=== PATIENT | male | born 1990 | race Caucasian/White ===

== ENCOUNTER → 2023-04-12 | Emergency (ER) | payer SELFPAY ==
[~2023-04-12] MED LIST: NA CHLORIDE 0.9% 1,000 ML ONE; activated charcoaL 25 GM/120 ML TUBE ONE
[2023-04-12 20:02] LABS: Absolute Lymphocytes (CBC) 0.9 K/uL (0.7-4.9); Hematocrit 41.6 % (39.6-49.0); Lymphocytes % 15.3 % (15.3-44.8); MCV 87.7 fL (80-100); MPV 6.9 fL (7.6-11.3); Platelets 386 thou/uL (152-406); RBC Red Blood Cell Count 4.74 M/uL (4.33-5.43)
[2023-04-12 20:07] LABS: Protime INR 1.13
[2023-04-12 20:19] LABS: ALT/SGPT 23 U/L (16-61); AST/SGOT 17 U/L (15-37); Albumin 4.2 g/dL (3.4-5.0); Alkaline Phosphatase 106 U/L (45-117); BUN Blood Urea Nitrogen 11 mg/dL (7-18); Bicarbonate 29 mEq/L (21-32); Bilirubin Direct 0.2 mg/dL (0-0.2); Bilirubin Indirect, Calculated 0.4 mg/dL (0.2-0.8); Bilirubin Total 0.6 mg/dL (0.2-1.0); Glomerular Filtration Rate 59 ml/min (=/>90); Glucose Level 93 mg/dL (74-106); Potassium 3.2 mEq/L (3.5-5.1); Protein, Total 8.2 g/dL (6.4-8.2); Sodium Level 138 mEq/L (136-145); Troponin High Sensitivity 3.9 pg/mL (<58.9)
--- NOTE | 2023-04-12 20:35 | ER ---
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 I don't know what it was it was a crystal and powder substance. 19:49 Coronavirus screen: At this time, the client does not indicate any symptoms associated jb4 with coronavirus-19. Ebola Screen: No symptoms or risks identified at this time. Initial Sepsis Screen: Does the patient meet any 2 criteria? No. Patient's initial sepsis screen is negative. Does the patient have a suspected source of infection? No. Patient's initial sepsis screen is negative. Risk Assessment: Do you want to hurt yourself or someone else? Patient reports no desire to harm self or others. Onset of symptoms was April 12, 2023. Transition of care: patient was not received from another setting of care. 19:49 Method Of Arrival: Ambulatory jb4 19:49 Acuity: DALLIN 2 jb4 Historical: - Allergies: 19:50 No Known Allergies; jb4 - Home Meds: 19:50 None [Active]; jb4 - PMHx: 19:50 None; jb4 - PSHx: 19:50 None; jb4 - Immunization history:: Adult Immunizations up to date. - Social history:: Smoking status: Patient denies any tobacco usage or history of. Patient/guardian denies using alcohol, street drugs. - Family history:: not pertinent. - Hospitalizations: : No recent hospitalization is reported. Screenin:59 [facility] ED Fall Risk Assessment (Adult) History of falling in the last 3 months, jw7 including since admission No falls in past 3 months (0 pts) Score/Fall Risk Level 0 - 2 = Low Risk Oriented to surroundings, Maintained a safe environment, Educated pt \\T\\ family on fall prevention, incl call for assistance when getting out of bed. Abuse screen: Denies threats or abuse. Denies injuries from another. Nutritional screening: No deficits noted. Tuberculosis screening: No symptoms or risk factors identified. Assessment: 19:40 Reassessment: Pt is more agitated after getting back to the ER room. Pt stormed out of jb4 the ER yelling " I don't have time for this" Tried telling the pt that medications are being prepared, Pt states " I don't care I am leaving." Pt left ER. Found pt in the parking lot, convinced pt to come back in to ER and be evaluated and get treatment. Pt currently cooperating. 20:00 General: Appears in no apparent distress. comfortable, slender, well groomed, Behavior jw7 is cooperative, agitated, anxious, restless. Pain: Denies pain. Neuro: Cho Agitation-Sedation Scale (RASS): +1 Restless Level of Consciousness is awake, alert, obeys commands, Oriented to person, place, time, situation. Cardiovascular: Heart tones S1 S2 present Capillary refill < 3 seconds Clubbing of nail beds is absent JVD is absent Patient's skin is warm and dry. Rhythm is sinus tachycardia. Respiratory: Airway is patent Trachea midline Respiratory effort is even, unlabored, Respiratory pattern is regular, symmetrical. GI: Abdomen is flat, non-distended, Bowel sounds present X 4 quads. : No deficits noted. No signs and/or symptoms were reported regarding the genitourinary system. EENT: No deficits noted. No signs and/or symptoms were reported regarding the EENT system. Derm: Skin is intact, is healthy with good turgor, Skin is dry, Skin is normal, Skin temperature is warm. Musculoskeletal: Circulation, motion, and sensation intact. Range of motion: intact in all extremities. 20:00 General: Pt denies any homicidal or suicidal ideation. jw7 20:10 Reassessment: IV removed per pt's request. Pt continues to leave the ER stating "I just jb4 need some fresh air.", Provider okayed pt to have water. Pt currently back in room pacing. 20:16 Reassessment: Pt left ED again to front lobby stating " I just need some fresh air." Pt jb4 remains A\\T\\Ox4. 20:32 Reassessment: Pt discovered gone at this time. Remained very anxious and agitated upon jb4 leaving the ED. 20:45 Reassessment: Registration called [facility] notifying them pt left and initially drove jb4 himself here. Unknown if he left in vehicle. Vital Signs: 19:49 BP 152 / 87; Pulse 122; Resp 18; Pulse Ox 99% on R/A; Weight 81.65 kg; Height 6 ft. 4 jb4 in. (R); Pain 0/10; 19:49 Body Mass Index 21.91 (81.65 kg, 193.04 cm) jb4 19:49 Pain Scale: Adult jb4 ED Course: 19:32 Patient arrived in ED. jb4 19:39 Betito Llanos MD is Attending Physician. rn 19:50 Triage completed. jb4 19:50 Arm band placed on left wrist. jb4 19:59 Patient has correct armband on for positive identification. Bed in low position. Call thalia light in reach. 19:59 Initial lab(s) drawn, by ED staff, sent to lab. EKG done, by ED staff, reviewed by thalia Llanos MD. Inserted saline lock: 20 gauge in right antecubital area, using aseptic technique. Blood collected. 20:10 IV discontinued, intact, bleeding controlled, No redness/swelling at site. Pressure jb4 dressing applied. 20:31 Attending Physician role handed off by Betito Llanos MD kdr 20:31 Charles Randhawa MD is Attending Physician. kdr Administered Medications: 19:49 Drug: Actidose-Sorbitol PO Suspension 50 grams PO once Route: PO; jb4 19:58 Drug: NS 0.9% IV 1000 ml IV at 1000 ml once Route: IV; Rate: 1000 ml; Site: right jw7 antecubital; Outcome: 20:46 Eloped from patient exam room, after seeing physician Time discovered patient gone: jb4 April 12, 2023 at 20:36 20:46 Condition: unchanged 20:48 Patient left the ED. jb4 Signatures: Charles Randhawa MD MD kdr Betito Llanos MD MD rn Bryson, James, RN RN jb4 WaitsDanielle RN RN jw7 Corrections: (The following items were deleted from the chart) 20:14 19:57 Reassessment: jb4 jb4 20:32 20:18 Reassessment: Pt left ED again to front lobby stating " I just need some fresh jb4 air." jb4
--- NOTE | 2023-04-12 20:35 | EDPHYS ---
Physician Documentation [facility] Name: Duane Montaño Age: 32 yrs Sex: Male : 1990 Arrival Date: 04/12/2023 Time: 19:27 Bed 4 Private MD: ED Physician Charles Randhawa HPI: 04/12 19:39 This 32 yrs old Male presents to ER via Unassigned with complaints of drug ingestion. rn 19:39 The patient presents to the emergency department with a possible overdose. Context: rn Method: the patient has a confirmed or suspected ingestion, Time: just prior to arrival, the OD/poisoning occurred at outdoors, on a street or driveway. Associated signs and symptoms: Pertinent negatives: auditory hallucinations, decreased level of consciousness, dizziness, incontinence, loss of consciousness, nausea, shortness of breath, tearfulness, visual hallucinations, vomiting. Severity of symptoms: At their worst the symptoms were mild in the emergency department the symptoms are unchanged. The patient has not experienced similar symptoms in the past. 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 Girlfriend had given him a bag with crystallized powder. Did not want to get, so swallowed it. Unknown how much an unknown type of drug but patient reports palpitations and heart racing, he thinks it is a stimulant. Was not suicidal attempt.. Historical: - Allergies: 19:50 No Known Allergies; jb4 - Home Meds: 19:50 None [Active]; jb4 - PMHx: 19:50 None; jb4 - PSHx: 19:50 None; jb4 - Immunization history:: Adult Immunizations up to date. - Social history:: Smoking status: Patient denies any tobacco usage or history of. Patient/guardian denies using alcohol, street drugs. - Family history:: not pertinent. - Hospitalizations: : No recent hospitalization is reported. ROS: 19:39 Constitutional: Negative for fever, chills, and weight loss, Neck: Negative for injury, rn pain, and swelling, Cardiovascular: Positive for palpitations Respiratory: Negative for shortness of breath, cough, wheezing, and pleuritic chest pain, Abdomen/GI: Negative for abdominal pain, nausea, vomiting, diarrhea, and constipation, Back: Negative for injury and pain, MS/Extremity: Negative for injury and deformity, Skin: Negative for injury, rash, and discoloration, Neuro: Negative for headache, weakness, numbness, tingling, and seizure, Exam: 19:39 Constitutional: This is a well developed, well nourished patient who is awake, alert, rn and in no acute distress. Appears anxious but ambulatory to room without difficulty or assistance Head/Face: Normocephalic, atraumatic. Eyes: No nystagmus ENT: Dry mucous membranes Cardiovascular: Tachycardic, regular. No pulse deficits Respiratory: No increased work of breathing, no retractions or nasal flaring. Abdomen/GI: Soft, non-tender Skin: Warm, dry, no rashes MS/ Extremity: Pulses equal, no cyanosis. Neuro: Awake and alert, GCS 15, oriented to person, place, time, and situation. Motor strength 5/5 in all extremities. Sensory grossly intact. Cerebellar exam normal. Normal gait. Vital Signs: 19:49 BP 152 / 87; Pulse 122; Resp 18; Pulse Ox 99% on R/A; Weight 81.65 kg; Height 6 ft. 4 jb4 in. (R); Pain 0/10; 19:49 Body Mass Index 21.91 (81.65 kg, 193.04 cm) jb4 19:49 Pain Scale: Adult jb4 MDM: 19:39 Patient medically screened. rn 19:39 ED course: Patient stormed out of the ER states does not want anything done. Denies rn suicidal ideation. Charge nurse went outside to bring him back and patient understands that we are trying to take care of him. Would not be surprised if he tries to leave once again.. 20:34 Data reviewed: vital signs, nurses notes, lab test result(s). kdr 04/12 19:33 Order name: Acetaminophen; Complete Time: 20:34 rn 04/12 19:33 Order name: Basic Metabolic Panel; Complete Time: 20:34 rn 04/12 19:33 Order name: CBC with Diff; Complete Time: 20:34 rn 04/12 19:33 Order name: ETOH Level; Complete Time: 20:34 rn 04/12 19:33 Order name: Hepatic Function; Complete Time: 20:34 rn 04/12 19:33 Order name: PT-INR; Complete Time: 20:34 rn 04/12 19:33 Order name: Ptt, Activated; Complete Time: 20:34 rn 04/12 19:33 Order name: Salicylate; Complete Time: 20:34 rn 04/12 19:33 Order name: Troponin High Sensitivity; Complete Time: 20:34 rn 04/12 19:33 Order name: EKG; Complete Time: 19:33 rn 04/12 19:33 Order name: EKG - Nurse/Tech; Complete Time: 19:58 rn 04/12 19:33 Order name: IV Saline Lock; Complete Time: 19:58 rn 04/12 19:33 Order name: Labs collected and sent; Complete Time: 19:58 rn 04/12 19:33 Order name: Suicide Screening ([place]); Complete Time: 19:58 rn Administered Medications: 19:49 Drug: Actidose-Sorbitol PO Suspension 50 grams PO once Route: PO; jb4 19:58 Drug: NS 0.9% IV 1000 ml IV at 1000 ml once Route: IV; Rate: 1000 ml; Site: right jw7 antecubital; Disposition Summary: 04/12/23 20:34 Eloped Notes: Disposition: after being seen by provider kdr Problem: new kdr Symptoms: have improved kdr Reason: other kdr Condition: Fair kdr Diagnosis - 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
[2023-04-12 22:30] VITALS: BP 152/87; O2SAT 99
--- NOTE | 2023-04-19 13:55 | EKG ---
Test Date: 2023-04-12 Test Time: 19:52:00 New Grad Rn: OSVALDO MEASUREMENT RESULTS: Intervals: Rate: 109 SD: 152 QRSD: 102 QT: 346 QTc: 465 [place]: P: 64 SD: 152 QRS: 92 T: 10 INTERPRETIVE STATEMENTS: Sinus tachycardia Otherwise normal ECG No previous ECG available for comparison Electronically Signed On 04-19-23 13:31:06 JOURNEYMAN WELDER by Todd Jorgensen
== END ==
LOC: ER 19:27
DX: F19.188 Other psychoactive substance abuse with other psychoactive substance-induced disorder (principal)
CPT/HCPCS: 36415; 80048; 80076; 80143; 80179; 82077; 84484; 85025; 85610; 85730; 93005; 99284; J7030